=== PATIENT | male | born 1985 | race Caucasian/White ===

== ENCOUNTER 2019-09-08 13:22 | Emergency (ER) | payer OTHER ==
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
--- NOTE | 2019-09-08 14:40 | RADIOLOGY REPORT (SQ) ---
EXAM DESCRIPTION: FOREARM LEFT COMPLETED DATE/TIME: 09/08/2019 2:26 pm REASON FOR STUDY: foreign body COMPARISON: None. NUMBER OF VIEWS: Two views. TECHNIQUE: Two radiographic images acquired of the left forearm, including elbow and wrist in at [address] one projection. LIMITATIONS: None. FINDINGS: MINERALIZATION: Normal. BONES: No acute fracture. No worrisome bone lesions. SOFT TISSUES: There is a small irregular foreign body that appears to be immediately beneath the skin on the dorsum of the forearm. OTHER: No other significant finding. IMPRESSION: Foreign body. TECHNICAL DOCUMENTATION: JOB ID: [id number] 2010 [email or web address]- All Rights Reserved Reading location - IP/workstation name: [email or web address]
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
[2019-09-08 18:31] VITALS: BP 137/90
== END 2019-09-08 18:31 | disposition home or self-care (01) ==
LOC: ER 13:22
DX: S40.852A Superficial foreign body of left upper arm, initial encounter (principal); W45.8XXA Other foreign body or object entering through skin, initial encounter; Y93.H9 Activity, other involving exterior property and land maintenance, building and construction; Y99.0 Civilian activity done for income or pay; Z79.899 Other long term (current) drug therapy; Z72.0 Tobacco use; Z88.1 Allergy status to other antibiotic agents
CPT/HCPCS: 99283